=== PATIENT | female | born 1960 | race Caucasian/White ===

== ENCOUNTER 2017-01-10 08:14 | Day surgery (SDC) | payer BC, OTHER ==
[2016-12-30 14:51] VITALS: BMI 27.0
--- NOTE | 2016-12-30 15:24 | PAT Medication Instructions ---
Service Date Dec 30, 2016. Current Home Medication List Atorvastatin (Lipitor), 10 MG PO HS B-Complex Vitamins (Vitamin B Complex), 1 TAB PO QAM Certolizumab Pegol (Cimzia), 1 DOSE INJ [id number] Cholecalciferol (Vitamin D3), 2,000 INTERUNIT PO QAM Coenzyme Q10 (Ubidecarenone) (Coq-10), 1 CAP PO HS Duloxetine Hcl (Cymbalta), 60 MG PO HS Folic Acid (Folvite), 5 TAB PO QAM Hydrocodon/Acetaminophen 5MG/300MG (Vicodin (5MG/300MG)), 2 TABS PO Q4H PRN for Pain Loratadine (Claritin), 10 MG PO HS Methotrexate (Methotrexate), 10 TAB PO TUESDAYS ONLY Ranitidine (Zantac), 75 MG PO TID Medication Instructions For Your Scheduled Surgery - Check with surgeon/lard bleacher for instructions: Certolizumab Pegol (Cimzia), 1 DOSE INJ [id number] Methotrexate (Methotrexate), 10 TAB PO TUESDAYS ONLY - Hold the following medications starting 12/30/16: Coenzyme Q10 (Ubidecarenone) (Coq-10), 1 CAP PO HS - Hold the following medications the morning of surgery: Ranitidine (Zantac), 75 MG PO TID Folic Acid (Folvite), 5 TAB PO QAM Cholecalciferol (Vitamin D3), 2,000 INTERUNIT PO QAM B-Complex Vitamins (Vitamin B Complex), 1 TAB PO QAM - Take the following medications the morning of surgery with a sip of water: Hydrocodon/Acetaminophen 5MG/300MG (Vicodin (5MG/300MG)), 2 TABS PO Q4H PRN for Pain (okay to take up 4 hours prior to surgery if needed) - Take the following medications as scheduled the night before surgery: Ranitidine (Zantac), 75 MG PO TID Loratadine (Claritin), 10 MG PO HS Atorvastatin (Lipitor), 10 MG PO HS Duloxetine Hcl (Cymbalta), 60 MG PO HS Hydrocodon/Acetaminophen 5MG/300MG (Vicodin (5MG/300MG)), 2 TABS PO Q4H PRN for Pain (if needed) If you have any questions please call us at [phone] or [phone] or [phone]
[2016-12-30 15:43] LABS: BASO % 0.6 %; BASO ABS # 0.06 K/uL (0-0.2); COMPLETE YES; EOS % 1.3 %; HEMATOCRIT 41.2 % (37-47); IG% 0.2 %; LYMPH % 32.1 %; LYMPH ABS # 3.35 K/uL (1.2-3.4); MEAN CELL VOLUME 100.5 fL (80-100); MEAN CORPUSCULAR HGB CONC 31.8 g/dl (32-36); MEAN PLATELET VOLUME 8.9 fL (7.4-10.4); MONO % 5.5 %; NEUT % 60.3 %; PLATELET COUNT 343 K/uL (130-400); WHITE BLOOD COUNT 10.43 K/uL (4.8-10.8)
[2016-12-30 15:58] LABS: PROTHROMBIN TIME (PATIENT) 10.5 SECONDS (9.0-12.0)
[2016-12-30 16:13] LABS: URINE APPEARANCE CLEAR (CLEAR); URINE BILIRUBIN NEG (NEG); URINE COLOR YELLOW; URINE NITRITE NEG (NEG); URINE PH 7.5 (4.5-7.5); URINE SPECIFIC GRAVITY 1.013 (1.000-1.030); UROBILINOGEN NEG (NEG)
[2016-12-30 16:14] LABS: BUN/CREATININE RATIO 22.1 (10-20); CALCIUM 8.8 mg/dl (8.5-10.1); CREATININE 0.8 mg/dl (0.60-1.20); POTASSIUM 4.5 mmol/L (3.5-5.1)
--- NOTE | 2016-12-30 16:14 | DIAGNOSTIC IMAGING REPORT ---
TWO VIEW CHEST CLINICAL HISTORY: Preoperative examination. FINDINGS: PA and lateral chest radiographs are obtained. No prior studies are available for comparison at the time of dictation. The cardiomediastinal silhouette is unremarkable. There is mild atherosclerotic calcification of the thoracic aorta. Prominent mediastinal fat is seen at the medial right lung base. The lungs and pleural spaces are clear. There is no pneumothorax. The bony thorax appears intact. IMPRESSION: No active disease in the chest. Electronically signed by: Marquise Salas M.D. 12/30/2016 4:13 PM Dictated Date/Time: 12/30/2016 4:09 PM
[2016-12-30 16:15] LABS: MANUAL MICROSCOPIC REQUIRED? NO; REVIEW REQ? NO
--- NOTE | 2016-12-30 16:45 | DIAGNOSTIC IMAGING REPORT ---
CERVICAL SPINE 3 VIEWS CLINICAL HISTORY: Preoperative examination. Rheumatoid arthritis. FINDINGS: Lateral views of the cervical spine in the neutral, flexion and extension positions are obtained. No prior studies are available for comparison at the time of dictation. The skeletal structures are osteopenic. There is no radiographic evidence of fracture on these lateral views. The atlantodental articulation is maintained. There is no evidence of subluxation at the atlantodental joint on flexion/extension. Vertebral body height is maintained throughout the cervical spine. There is minimal retrolisthesis at C3-C4 and C4-C5 on the neutral position. This increases slightly in extension, and improves slightly in flexion. Alignment is otherwise preserved. Partial bony fusion is seen involving C5-C6. There is straightening of the cervical lordosis with reversal centered at C4. Anterior osteophytes are seen throughout. There is near complete loss of the C5-C6 disc space. Moderate to advanced disc space narrowing is seen at C3-C4, C4-C5, and C6-C7. Posterior disc osteophyte complexes at C3-C4, C4-C5, and C6-C7 likely contribute to acquired compromise of the central canal. The spinous processes appear intact. There is slight offset of the spinolaminar line at C4-C5. The prevertebral soft tissues are within normal limits. IMPRESSION: Osteopenia and spondylotic change as detailed above. Dictated: 12/30/2016 4:19 PM Transcribed: 12/30/2016 4:44 PM Radha Electronically signed by: Marquise Salas M.D. 12/30/2016 4:53 PM Dictated Date/Time: 12/30/2016 4:19 PM
--- NOTE | 2017-01-04 14:14 | HISTORY & PHYSICAL EXAMINATION ---
DATE OF ADMISSION: 01/10/2017 CHIEF COMPLAINT: Back and left leg pain. 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 She had acute onset of severe back and left leg pain. She is describing weakness and numbness in the left leg without incontinence. She has severe symptoms despite oral steroids, oral pain medication and attempted chiropractic treatment. She denies right leg symptoms. She had an MRI performed which revealed a large left L2-3 and L4-L5 disc herniations causing neural compression. PAST MEDICAL HISTORY: Rheumatoid arthritis, history of anemia, reflux, fibromyalgia, GERD, shortness of breath, motion sickness, migraines, irregular heartbeat, high cholesterol. PAST SURGICAL HISTORY: , hysterectomy, tonsillectomy, ulnar nerve transposition. FAMILY HISTORY: Arthritis, cardiovascular disease, cancer, hypertension, high cholesterol. SOCIAL HISTORY: The patient is , drinks a glass of wine occasionally, former smoker. No drug use. REVIEW OF SYSTEMS: Notable for fatigue, weakness, leg pain, headache, blurred vision. She denies coughing, shortness breath, chest pain, dyspnea on exertion or incontinence. MEDICATIONS: Duloxetine, methotrexate, Zantac, Claritin, Lipitor, Lortab. ALLERGIES: ERYTHROMYCIN, LEVOFLOXACIN. PHYSICAL EXAMINATION: GENERAL: Stands 5 feet 6 inches tall, weighs 165 lbs. She has normal affect, answers questions appropriately. She has full cervical range of motion with no cervical lymphadenopathy and normal affect. She is awake, alert and oriented x3. HEART: Auscultation heart reveals regular rate and rhythm. LUNGS: Clear to auscultation bilaterally. Equal chest extrusion. ABDOMEN: non obese SKIN: no scars/dimpling in lumbar EXTREMITIES: Revealed palpable peripheral pulses. Positive straight leg raise on the left. No edema or swelling. NEURO: She has a foot drop left ankle with intact strength in plantarflexion and decreased sensation to light touch in L3 and L5 distribution on the left. Right lower extremity has normal strength mini motor testing and intact sensation to light touch. She has diminished DTRs at patellar and no clonus at the ankles. ASSESSMENT AND PLAN: The patient has left L2-3 and L4-L5 disc herniation with severe radiculopathy with motor deficits. I recommend left L2-3 and L4-5 microdiscectomy. She would like to proceed. Her disease modifying agents have been held. MTDD
[~2017-01-10] VITALS: Ht 167.6 cm; Wt 76.5 kg
[~2017-01-10 08:14] MED LIST: ATOR10TA82 PO; B-COTAB18 PO; CEFAZOLIN 2000 MG/60 ML D5W IV SCH; CERT200K INJ; CLR10 PO; COEN100C11 PO; DULO60CA44 PO; FOLI1TAB7 PO; HYDR-3419 PO; LACTATED RINGER'S 1000ML 1,000 ML IV SCH; METH2.5T PO; VTMD1000 PO; ZNTT/150 PO
[2017-01-10] MEDS ORDERED: HYDROmorphone INJ 1 MG/ML SYR IV PRN (09:00)
[2017-01-10] MEDS ORDERED: ATROPINE SULFATE 0.1 MG/ML 5ML SYR IV PRN (09:00)
[2017-01-10] MEDS ORDERED: EpHEDrine SULFATE INJ 50 MG/ML AMP IV PRN (09:00)
[2017-01-10] MEDS ORDERED: ONDANSETRON INJ 2 MG/ML 2 ML VIAL IV PRN ×2 (09:00→11:00)
[2017-01-10 09:08] VITALS: BP 130/77; PULSE 95; TEMP 37; O2SAT 98; Ht 167.6 cm; Wt 76.5 kg
--- NOTE | 2017-01-10 09:31 | History & Physical Bridge Note ---
H&P Re-Evaluation Bridge Note: I have examined the patient, reviewed the History & Physical and in the interval since the performance of the History & Physical I have noted the following changes of clinical significance: No changes noted
[2017-01-10] MEDS ORDERED: BUPIVACAINE/EPINEPHRINE 0.5% MPF 1:200,000 30 ML VIAL ONE (09:38)
[2017-01-10] MEDS ORDERED: THROMBIN 5000 UNITS KIT ONE (09:38)
[2017-01-10] MEDS ORDERED: BACITRACIN 50000 UNIT VIAL ONE (09:38)
[2017-01-10] MEDS ORDERED: SCOPOLAMINE 1.5 MG TDSY TD ONE (09:50)
[2017-01-10] MEDS ORDERED: FENTANYL CITRATE INJ 50 MCG/1 ML 2 ML VIAL ONE ×2 (09:55→10:20)
[2017-01-10] MEDS ORDERED: MIDAZOLAM HCL 1 MG/ML 2ML VIAL ONE (09:55)
[2017-01-10] MEDS ORDERED: NURSING VERBAL MED ORDER ONE (10:00)
[2017-01-10] MEDS ORDERED: HYDROmorphone INJ 2 MG/ML SYR/VIAL ONE (10:20)
[2017-01-10] MEDS ORDERED: KETOROLAC TROMETHAMINE 30 MG/ML VIAL ONE (10:36)
[2017-01-10] MEDS ORDERED: SUCCINYLCHOLINE 100MG/5ML SYR IV ONE (10:36)
[2017-01-10] MEDS ORDERED: DEXAMETHASONE SOD INJ 4 MG/ML VIAL ONE (10:36)
[2017-01-10] MEDS ORDERED: RANITIDINE HCL 25 MG/ML INJ ONE (10:36)
[2017-01-10] MEDS ORDERED: ROCURONIUM BROMIDE 10 MG/ML 5 ML VIAL ONE (10:36)
[2017-01-10] MEDS ORDERED: METOCLOPRAMIDE HCL INJ 5 MG/ML 2 ML VIAL ONE (10:36)
[2017-01-10] MEDS ORDERED: GLYCOPYRROLATE INJ 0.2 MG/ML VIAL ONE (10:36)
[2017-01-10] MEDS ORDERED: ESMOLOL HCL 10 MG/ML 10 ML VIAL ONE (10:36)
[2017-01-10] MEDS ORDERED: PROPOFOL IV EMULSION 10 MG/ML 20 ML VIAL IV ONE (10:36)
[2017-01-10] MEDS ORDERED: ONDANSETRON INJ 2 MG/ML 2 ML VIAL ONE (10:36)
[2017-01-10] MEDS ORDERED: LIDOCAINE HCL 2% 2 ML VIAL (20MG/ML) ONE (10:36)
[2017-01-10] MEDS ORDERED: NEOSTIGMINE METHYLSULFATE 1 MG/ML 10ML VIAL ONE (10:36)
--- NOTE | 2017-01-10 10:54 | [facility] Post Operative Brief Note ---
Immediate Operative Summary Operative Date Jan 10, 2017. Pre-Operative Diagnosis Left L2-3 and L4-L5 disc herniation with severe radiculopathy with motor deficits. Post-Operative Diagnosis Left L2-3 and L4-L5 disc herniation with severe radiculopathy with motor deficits. Procedure(s) Performed Left L2-L3, L4-L5 Microdiscectomy Surgeon Dr. Atkins Cream Buyer Surgeon(s) Martin Cooper Estimated Blood Loss 50 ml Findings dict Specimens None per Surgeon
[2017-01-10] MEDS ORDERED: HYDR-3419 PO (10:55)
--- NOTE | 2017-01-10 10:56 | Discharge Instructions ---
Discharge Instructions Date of Service Jan 10, 2017. Admission Reason for Admission: Herniated Nucleus Pulposus Discharge Discharge Diagnosis / Problem: same Discharge Goals Goal(s): Decrease discomfort Activity Recommendations Activity Limitations: per Instructions/Follow-up section . Instructions / Follow-Up Instructions / Follow-Up ACTIVITY RECOMMENDATIONS: SELF CARE INSTRUCTIONS AFTER A LAMINECTOMY 1. No prolonged sitting (less than 30 minutes for the first 3 weeks after surgery). 2. No bending, lifting more than 5 pounds, or twisting (roll like a log when turning in bed). 3. You may shower 3 days after surgery if no drainage from wound. Thoroughly dry wound. Do not soak in the tub. 4. Please walk as much as you can for exercise. Gradually increase the distance that you walk as your endurance increases. 5. You may drive in 7-10 days if you are comfortable and no longer requiring pain medications. SPECIAL CARE INSTRUCTIONS: VERY IMPORTANT TO READ AND REVIEW A. Your surgical incision has been closed with a cosmetic suture under the skin that will dissolve in about 6 weeks. In 14 days, you can use a pair of clean scissors and cut the suture that is left outside of the skin at the ends of your incision. B. Complications are uncommon, but please contact us if you have any signs or symptoms of: 1. wound infection (fever higher than 102.5 degrees F, redness, separation of wound, drainage, or increasing pain from the incision) 2. blood clots in legs (pain, swelling, redness and warmth in legs) 3. urinary tract infection (fever higher than 102.5 degrees, burning upon urination or increased frequency of urination) 4. nerve problems (inability to walk on your toes or heels, numbness, loss of bowel or bladder control) 5. any other symptoms that concern you. C. Please call the office at if you have any concerns or questions about your operation or recovery. MANAGING PAIN AFTER SPINAL SURGERY 1. Narcotic medication is intended for short-term use and will be provided for surgical pain. Surgical pain usually lasts for a period of 4-6 weeks. Narcotic medication includes Percocet, Vicodin, Darvocet, Tylenol #3 or Lortab. 2. Longer-term pain is more appropriately treated with non-narcotic medication such as Tylenol ES. 3. Muscle spasm is not appropriately treated with narcotics. Muscle relaxers such as Soma, Flexeril or Skelaxin can be used along with Tylenol ES. 4. Remember that we all live with some "aches and pains". This is not unusual or uncommon after an injury or as we get older. 5. We will provide appropriate medication within the normal guidelines of their prescribed use. We will also be very cautious and aware of potential abuse and extended duration of patients' medication needs. 6. Please allow 2-3 days to process refills. Prescriptions will not be mailed but must be picked up at the office. FOLLOW UP VISIT: Keep your scheduled follow-up appointment. Any questions, please call the office at . Current Hospital Diet Patient's current hospital diet: Discharge Diet Recommended Diet: Regular Diet Procedures Procedures Performed: Left L2-L3, L4-L5 Microdiscectomy Pending Studies Studies pending at discharge: no Medical Emergencies . Who to Call and When: Medical Emergencies: If at any time you feel your situation is an emergency, please call 911 immediately. . Non-Emergent Contact Non-Emergency issues call your: Surgeon . "Provider Documentation" section prepared by Carlos Ruiz. . VTE Core Measure Inpt VTE Proph given/why not?: SCD's [place] Drug Monitoring Program Search Results: patient reviewed within database, no issues identified
[2017-01-10] MEDS ORDERED: FLOSEAL HEMOSTATIC MATRIX 5ML TOP ONE (10:57)
[2017-01-10] MEDS ORDERED: SODIUM CHLORIDE 0.9% 1000ML 1,000 ML IV SCH (10:58)
[2017-01-10] MEDS ORDERED: MoRPHine SULFATE 2 MG/ML CARP IV PRN (11:00)
[2017-01-10] MEDS ORDERED: OXYCODONE/ACETAMINOPHEN 5-325 TAB PO PRN ×2 (11:00)
--- NOTE | 2017-01-10 11:17 | DIAGNOSTIC IMAGING REPORT ---
LUMBAR SPINE, INTRAOPERATIVE FLUOROSCOPY HISTORY: L2-L3 and L4-L5 microdiscectomy.. FLUOROSCOPY TIME: 6 seconds. FINDINGS: Intraoperative fluoroscopy was provided for the lumbar spine. 2 fluoroscopic spot images were obtained. Images demonstrate a surgical instrument posterior to the L3 vertebral body and posterior to the L4-L5 disc space level IMPRESSION: Fluoroscopy provided for a L2-L3 and L4-5 microdiscectomy.. Electronically signed by: Mehran Silva M.D. 01/10/2017 11:16 AM Dictated Date/Time: 01/10/2017 11:16 AM
[2017-01-10] MEDS ORDERED: METOPROLOL TARTRATE 1 MG/ML VIAL ONE (11:19)
--- NOTE | 2017-01-10 11:20 | OPERATIVE REPORT ---
DATE OF OPERATION: 01/10/2017 PREOPERATIVE DIAGNOSES: Left L2-3 and L4-L5 herniated nucleus pulposus. POSTOPERATIVE DIAGNOSIS: Same. PROCEDURES: Left L2-3 and L4-L5 microdiscectomy. SURGEON: Dr. Ruiz. HOT MILL SHEARER: Martin Amador PA-C. Please note he participated in all portions of the procedure and was critical for performance of the procedure, participated in positioning, prepping, draping, retraction and wound closure. ANESTHESIA: General endotracheal anesthesia. COMPLICATIONS: None. ESTIMATED BLOOD LOSS: Minimal. OPERATION AND FINDINGS: PROCEDURE: After identification of patient and operative level, she was brought to the OR where she underwent induction of general anesthesia. She was then positioned prone on Sarath OR table. All bony prominences were well padded. Care was taken to avoid pressure on the periorbital area. Lumbosacral area was sterilely prepped and draped in usual fashion. Antibiotics were administered. Time-out was performed. Level was confirmed and skin incision was localized with lateral fluoroscopy and a spinal needle. I infiltrated the skin with 0.5% Marcaine with epinephrine, made skin incision over the spinous process of L2-L3 and L4-L5 exposing the interlaminar windows at each level. I turned my attention to L2-L3 first. I marked it with fluoroscopy and a marker in the lamina of L2. I then placed a black top raker retractor and made a small laminotomy under the caudal edge of L2. I removed ligamentum flavum and identified the traversing nerve root, protected it with a nerve retractor and then identified the paracentral disc protrusion with the distended annulus. I made a vertical annulotomy and removed loose disc material deep to the annulus. This decompressed the annulus, decreased the size of the bulge and allowed the nerve root to pass freely along the pedicle. I then irrigated, applied FloSeal for hemostasis. I turned my attention then to L4-L5. I returned the black top raker retractor to this level, reconfirmed level with fluoroscopy and a marker in the lamina of L4. I then repeated the process at L4-L5 with a small laminotomy being created with a javier and removed ligamentum flavum with Kerrisons, identified the traversing nerve root and protected it with a nerve retractor. There was a large extruded fragment in the L4-L5 paracentral location and extending superior to the disc space. I removed all loose disc fragments proximally and distally and then made a vertical annulotomy and removed loose disc material behind the distended annulus. I then confirmed nerve roots decompressed. I irrigated again with bacitracin solution, applied FloSeal for hemostasis and then closed in layered fashion. All sponge and needle counts were correct at the end of the case. I attest to the content of the Intraoperative Record and any orders documented therein. Any exception s are noted below.
[2017-01-10] MEDS: FENTANYL CITRATE INJ 50 MCG/1 ML 2 ML VIAL IV PRN ×4 (11:30→11:48)
--- NOTE | 2017-01-10 12:19 | Anesthesiology Progress Note ---
Anesthesia Post Op Note Date & Time Jan 10, 2017 at 12:19 Vital Signs Pain Intensity: 4 Vital Signs Past 12 Hours Date Time Temp Pulse Resp B/P (MAP) Pulse Ox O2 Delivery O2 Flow Rate FiO2 01/10/17 12:10 36.9 78 16 118/65 97 Room Air 01/10/17 12:00 36.9 84 16 125/63 92 Room Air 01/10/17 11:50 74 16 120/74 92 Room Air 01/10/17 11:40 90 16 121/69 93 Room Air 01/10/17 11:30 83 16 127/73 97 Mask 10 01/10/17 11:20 88 16 112/81 97 Mask 10 01/10/17 11:14 37.2 89 14 140/76 97 Mask 10 01/10/17 09:08 37 95 18 130/77 (94) 98 Room Air Notes Mental Status: alert / awake / arousable, participated in evaluation Pt Amnestic to Procedure: Yes Nausea / Vomiting: adequately controlled Pain: adequately controlled Airway Patency, RR, SpO2: stable & adequate BP & HR: stable & adequate Hydration State: stable & adequate Anesthetic Complications: no major complications apparent
[2017-01-10] MEDS ORDERED: OXYCODONE/ACETAMINOPHEN 5-325 TAB ONE (12:32)
[2017-01-10 13:20] VITALS: BP 115/90; PULSE 93; TEMP 36.4; O2SAT 94
== END 2017-01-10 13:40 | disposition home or self-care (01) ==
LOC: C.ACU 08:14
PROVIDERS: ATTEND Orthopaedic Surgery Orthopaedic Surgery of the Spine
DX: M51.16 Intervertebral disc disorders with radiculopathy, lumbar region (principal); E78.00 Pure hypercholesterolemia, unspecified; K21.9 Gastro-esophageal reflux disease without esophagitis; M06.9 Rheumatoid arthritis, unspecified; M79.7 Fibromyalgia; Z79.899 Other long term (current) drug therapy